=== PATIENT | male | born 1995 | race Caucasian/White ===

== ENCOUNTER → 2017-09-25 | Outpatient (CLI) | payer OTHER ==
[~2017-09-25] MED LIST: CYCL10 PO; Cyclobenzaprine5 MG PO; NAPR550 PO; Norco 5-325 Ta1 EACH PO
[2017-09-25 10:10] LABS: Source, Urine Clean Catch
[2017-09-25 12:42] LABS: Bilirubin, Urine Neg (Neg); Blood, Urine Neg (Neg); Glucose Qualitative, Urine Neg (Neg); Ketones, Urine Neg (Neg); Leukocyte Esterase, Urine Neg (Neg); Nitrite, Urine Neg (Neg); Protein, Urine Neg (Neg); Urobilinogen, Urine NORM (Normal)
[2017-09-25 12:53] LABS: Appearance, Urine Clear (Clear); Color, Urine Yellow (P-Yellow)
== END ==
LOC: LAB 10:08
PROVIDERS: Nurse Practitioner Family
DX: R10.2 Pelvic and perineal pain (principal)
CPT/HCPCS: 81003

== ENCOUNTER → 2017-10-21 | Outpatient (CLI) | payer OTHER ==
[2017-10-21 13:27] LABS: Specimen Source UR
[2017-10-22 08:43] LABS: Source UR
== END ==
LOC: LAB 12:00
PROVIDERS: Nurse Practitioner Family
DX: R10.2 Pelvic and perineal pain (principal)
CPT/HCPCS: 87491; 87591

== ENCOUNTER 2018-03-09 12:18 | Emergency (ER) | payer OTHER ==
[~2018-03-09] VITALS: Ht 182.9 cm; Wt 86.2 kg
== END 2018-03-09 13:34 | disposition home or self-care (01) ==
LOC: ER 12:18
DX: G43.109 Migraine with aura, not intractable, without status migrainosus (principal); Z88.0 Allergy status to penicillin
CPT/HCPCS: 96372; 99283; J1200; J1885; J2765

== ENCOUNTER 2019-12-06 18:25 | Emergency (ER) | payer OTHER ==
[~2019-12-06] VITALS: Ht 185.4 cm; Wt 81.7 kg
[2019-12-06] MEDS ORDERED: KETO10 PO (20:58)
[2019-12-06] MEDS ORDERED: METPRE4DP PO (20:58)
== END 2019-12-06 21:12 | disposition home or self-care (01) ==
LOC: ER 18:25
DX: S33.5XXA Sprain of ligaments of lumbar spine, initial encounter (principal); Z88.0 Allergy status to penicillin; Z88.8 Allergy status to other drugs, medicaments and biological substances; X50.1XXA Overexertion from prolonged static or awkward postures, initial encounter
CPT/HCPCS: 96372; 99283-25; A9270-GY; J1200; J1630; J1885; J7512

== ENCOUNTER 2019-12-18 14:47 | Emergency (ER) | payer OTHER ==
[~2019-12-18] VITALS: Ht 182.9 cm; Wt 81.2 kg
[~2019-12-18 14:47] MED LIST changes: +KETO10 PO; +METPRE4DP PO
[2019-12-18 15:59] LABS: Source, Urine Clean Catch
[2019-12-18 16:02] LABS: Bilirubin, Urine Neg (Neg); Blood, Urine Neg (Neg); Glucose Qualitative, Urine Neg (Neg); Ketones, Urine Neg (Neg); Leukocyte Esterase, Urine Neg (Neg); Nitrite, Urine Neg (Neg); Protein, Urine Neg (Neg); Specific Gravity, Urine 1.005 (1.003-1.022); Urobilinogen, Urine NORM (Normal)
[2019-12-18 16:07] LABS: Appearance, Urine Clear (Clear); Color, Urine Yellow (P-Yellow)
[2019-12-18 16:12] LABS: U Amphetamine Screen Not Detected; U Barbituate Screen Not Detected; U Benzodiazapine Screen Not Detected; U Buprenorphine Screen Not Detected; U Cannabinoids Screen Not Detected; U Cocaine Screen Not Detected; U Methadone Screen Not Detected; U Methamphetamine Screen Not Detected; U Opiates Screen Not Detected; U Oxycodone Screen Not Detected; U Phencyclidine Screen Not Detected; U Propoxyphene Screen Not Detected
[2019-12-18] MEDS ORDERED: Norco 10-325 T1 EACH PO (17:51)
[2019-12-18] MEDS ORDERED: Vibramycin100 MG PO (17:51)
[2019-12-20 21:08] LABS: CHLAMYDIA TRACHOMATIS, NAA Negative (Negative); NEISSERIA GONORRHOEAE, NAA Negative (Negative)
== END 2019-12-18 18:06 | disposition home or self-care (01) ==
LOC: ER 14:47
PROVIDERS: Emergency Medicine
DX: N32.9 Bladder disorder, unspecified (principal); M54.5 Low back pain; Z88.0 Allergy status to penicillin; Z91.09 Other allergy status, other than to drugs and biological substances
CPT/HCPCS: 51798; 81003; 87491; 87591; 99283-25

== ENCOUNTER 2020-01-02 15:01 | Emergency (ER) | payer OTHER ==
[~2020-01-02] VITALS: Ht 182.9 cm; Wt 81.7 kg
[~2020-01-02 15:01] MED LIST changes: +Norco 10-325 T1 EACH PO; +Vibramycin100 MG PO
[2020-01-02] MEDS ORDERED: DELTASONE20 MG PO (15:36)
[2020-01-02] MEDS ORDERED: KETO10 PO (15:36)
== END 2020-01-02 15:57 | disposition home or self-care (01) ==
LOC: ER 15:01
DX: G89.29 Other chronic pain (principal); M54.5 Low back pain; Z88.0 Allergy status to penicillin; Z91.041 Radiographic dye allergy status
CPT/HCPCS: 96372; 99282-25; J1885; J7512

== ENCOUNTER 2020-04-04 19:02 | Emergency (ER) | payer OTHER ==
[~2020-04-04] VITALS: Ht 182.9 cm; Wt 81.7 kg
[~2020-04-04 19:02] MED LIST changes: +DELTASONE20 MG PO; +Prednisone20 MG PO
[2020-04-04] MEDS ORDERED: KETO10 PO (22:40)
[2020-04-04] MEDS ORDERED: CYCL10 PO (22:40)
[2020-04-16] MEDS ORDERED: EPIPEN 2-P0.3 MG/0.1 UD (17:44)
[2020-04-16] MEDS ORDERED: KETO10 PO (17:44)
[2020-04-19] MEDS ORDERED: ONDA4ODT SL (13:18)
[2020-04-19] MEDS ORDERED: HYDPAM25 PO (13:18)
[2020-04-19] MEDS ORDERED: PEPCID40 MG PO (13:18)
[2020-04-28] MEDS ORDERED: Cyclobenzaprine5 MG PO (00:45)
[2020-04-28] MEDS ORDERED: KETO10 PO (00:45)
[2020-04-28] MEDS ORDERED: OMEP20ER PO (01:07)
== END 2020-04-04 22:54 | disposition home or self-care (01) ==
LOC: ER 19:02
DX: G89.29 Other chronic pain (principal); M54.5 Low back pain; Z88.0 Allergy status to penicillin; Z91.09 Other allergy status, other than to drugs and biological substances; Z88.8 Allergy status to other drugs, medicaments and biological substances
CPT/HCPCS: 96372; 99283-25; J1100; J1885

== ENCOUNTER 2020-07-20 07:03 | Day surgery (SDC) | payer OTHER ==
[~2020-07-20 07:03] MED LIST changes: +EPIPEN 2-P0.3 MG/0.1 UD; +HYDPAM25 PO; +OMEP20ER PO; +ONDA4ODT SL; +PEPCID40 MG PO
--- NOTE | 2020-07-20 09:00 | NUR ---
PT DCD WITH INSTRUCTIONS TO CALL DR ROBLEDO'S OFFICE FOR CONSULT 0153 PT GIVEN #1 DOSE LOPRESSURE PT BECAME SYMTOMATIC WITH CHEST PRESSURE AND FEELING OF SOB. RADIOLOGY NOTIFED AND DR ROBLEDO CALLED. DR ROBLEDO WANTED TO CONT LOPRESSURE IF PT TOLERATES 0835 PT GIVEN #3 DOSE LOPRESSURE PT SYMPTOMS STABLE CONT TO HAVE SAME CHEST PRESSURE VSS PT STATES I FEEL FINE MY HEART JUST WONT SLOW DOWN STATES I HAVE A HISTORY OF A HIGH HEART RATE DR AKERS FROM RADIOLOGY CANCELED CTA DUE TO HIGH HRT RATE
== END 2020-07-20 23:33 | disposition home or self-care (01) ==
LOC: ORD 07:03 → CT 07:03 → ORD 07:30 → CT 08:00 → ORD 23:33
DX: R94.39 Abnormal result of other cardiovascular function study (principal); R00.0 Tachycardia, unspecified; F41.9 Anxiety disorder, unspecified; G89.29 Other chronic pain; Z87.891 Personal history of nicotine dependence; Z79.899 Other long term (current) drug therapy; Z88.0 Allergy status to penicillin; Z88.4 Allergy status to anesthetic agent; Z88.8 Allergy status to other drugs, medicaments and biological substances; Z91.041 Radiographic dye allergy status

== ENCOUNTER 2020-08-04 08:04 | Day surgery (SDC) | payer OTHER ==
[~2020-08-04] VITALS: Ht 177.8 cm; Wt 77.0 kg
[2020-08-04] MEDS ORDERED: HYDR1TAB94 PO (08:51)
[2020-08-04 09:02] LABS: BASOPHILS ABSOLUTE AUTO 0.04 K/mm3 (0.00-0.23); BASOPHILS PERCENT AUTO 1 % (0-2); EOSINOPHILS PERCENT AUTO 2 % (0-6); Hematocrit 45.1 % (37.0-53.0); Hemoglobin 15.3 g/dL (13.5-17.5); IMMATURE GRAN ABSOLUTE AUTO 0.01 K/mm3 (0.00-0.10); IMMATURE GRAN PERCENT AUTO 0 % (0-1); LYMPHOCYTES ABSOLUTE AUTO 1.95 K/mm3 (0.84-5.20); LYMPHOCYTES PERCENT AUTO 29 % (21-46); MONOCYTES ABSOLUTE AUTO 0.54 K/mm3 (0.16-1.47); MONOCYTES PERCENT AUTO 8 % (4-13); Mean Corpuscular HGB 29.4 pg (26.0-34.0); Mean Corpuscular HGB Conc 33.9 g/dL (31.5-36.5); Mean Corpuscular Volume 87 fL (80-100); Mean Platelet Volume 10.1 fL (9.1-12.4); NEUTROPHILS ABSOLUTE AUTO 4.16 K/mm3 (1.96-9.15); NEUTROPHILS PERCENT AUTO 61 % (41-73); Platelet Count 241 K/mm3 (150-400); RDW Standard Deviation 38.3 fL (35.1-46.3); Red Blood Cell Count 5.21 M/mm3 (4.30-5.90)
--- NOTE | 2020-08-04 09:02 | NUR ---
PT C/O FEELING LIGHTHEADED DURING IV START, BP DROPPED, PALE AND DIAPHORETIC. PLACED PT INTO TRENDELENBERG POSITION, NS FLUID BOLUS STARTED. WILL CONTINUE TO MONITOR.
[2020-08-04 09:12] LABS: International Normalized Ratio 1.01; Prothrombin Time Results 10.8 Sec (9.7-11.5)
--- NOTE | 2020-08-04 10:17 | NUR ---
PT OUT OF BED, PACES AROUND ROOM AT TIMES, MOTHER AT BEDSIDE. EDUCATED PT ON IMPORTANCE OF STAYING IN BED IF HE FEELS THAT HE IS "GOING TO PASS OUT", VERBALIZED UNDERSTANDING. DR. PRIETO NOW AT BEDSIDE TO DISCUSS PLAN OF CARE WITH PT.
== END 2020-08-04 14:28 | disposition home or self-care (01) ==
LOC: MHTC 08:04
DX: R07.89 Other chest pain (principal); F41.9 Anxiety disorder, unspecified; G89.29 Other chronic pain; M51.16 Intervertebral disc disorders with radiculopathy, lumbar region; Z79.899 Other long term (current) drug therapy; Z87.891 Personal history of nicotine dependence; Z88.0 Allergy status to penicillin; Z88.4 Allergy status to anesthetic agent; Z88.8 Allergy status to other drugs, medicaments and biological substances; Z91.041 Radiographic dye allergy status; Z53.9 Procedure and treatment not carried out, unspecified reason
CPT/HCPCS: 85025; 85610; J1644; J7030; J7050

== ENCOUNTER 2020-08-07 08:36 | Day surgery (SDC) | payer OTHER ==
[~2020-08-07 08:36] MED LIST changes: +HYDR1TAB94 PO
--- NOTE | 2020-08-07 09:25 | NUR ---
PT HERE FOR CTA PT CAME WITH PREMEDS WHICH HE TOOK UPON ARRIVAL IV STARTED 20 G RT AC
--- NOTE | 2020-08-07 10:08 | NUR ---
pt starting to feel tired from predose lorazepam pt tolerating lopressure dose 1 well
== END 2020-08-07 23:15 | disposition home or self-care (01) ==
LOC: CT 08:36
DX: R94.39 Abnormal result of other cardiovascular function study (principal); R07.89 Other chest pain; R00.2 Palpitations; F41.9 Anxiety disorder, unspecified; G89.4 Chronic pain syndrome; Z79.899 Other long term (current) drug therapy; Z87.891 Personal history of nicotine dependence; Z88.0 Allergy status to penicillin; Z88.4 Allergy status to anesthetic agent; Z88.8 Allergy status to other drugs, medicaments and biological substances; Z91.041 Radiographic dye allergy status
CPT/HCPCS: 75574; Q9967

== ENCOUNTER 2020-08-24 22:46 | Emergency (ER) | payer OTHER ==
[~2020-08-24] VITALS: Ht 182.9 cm; Wt 79.4 kg
[2020-08-24] MEDS ORDERED: Robaxin750 MG PO (23:09)
[2020-08-24] MEDS ORDERED: OXYC5 PO (23:10)
== END 2020-08-25 00:29 | disposition home or self-care (01) ==
LOC: ER 22:46
DX: G89.29 Other chronic pain (principal); M54.5 Low back pain; Z87.891 Personal history of nicotine dependence; Z99.12 Encounter for respirator [ventilator] dependence during power failure
CPT/HCPCS: 96374; 96375; 99283-25; J1170; J2405

== ENCOUNTER 2020-09-02 02:22 | Emergency (ER) | payer OTHER ==
[~2020-09-02] VITALS: Ht 182.9 cm; Wt 72.6 kg
[~2020-09-02 02:22] MED LIST changes: +OXYC5 PO; +Robaxin750 MG PO
[2020-09-02 03:24] LABS: BASOPHILS ABSOLUTE AUTO 0.04 K/mm3 (0.00-0.23); BASOPHILS PERCENT AUTO 0 % (0-2); EOSINOPHILS PERCENT AUTO 2 % (0-6); Hematocrit 47.7 % (37.0-53.0); Hemoglobin 16.9 g/dL (13.5-17.5); IMMATURE GRAN ABSOLUTE AUTO 0.06 K/mm3 (0.00-0.10); IMMATURE GRAN PERCENT AUTO 1 % (0-1); LYMPHOCYTES ABSOLUTE AUTO 2.48 K/mm3 (0.84-5.20); LYMPHOCYTES PERCENT AUTO 20 % (21-46); MONOCYTES ABSOLUTE AUTO 0.85 K/mm3 (0.16-1.47); MONOCYTES PERCENT AUTO 7 % (4-13); Mean Corpuscular HGB 29.9 pg (26.0-34.0); Mean Corpuscular HGB Conc 35.4 g/dL (31.5-36.5); Mean Corpuscular Volume 84 fL (80-100); Mean Platelet Volume 9.4 fL (9.1-12.4); NEUTROPHILS ABSOLUTE AUTO 8.82 K/mm3 (1.96-9.15); NEUTROPHILS PERCENT AUTO 71 % (41-73); Platelet Count 340 K/mm3 (150-400); RDW Coefficient Variation 12.1 % (11.7-14.2); RDW Standard Deviation 36.1 fL (35.1-46.3); Red Blood Cell Count 5.66 M/mm3 (4.30-5.90); White Blood Cell Count 12.45 K/mm3 (4.00-11.30)
[2020-09-02 03:42] LABS: Alanine Aminotransfer (ALT/SGP 37 U/L (12-78); Albumin/Globulin Ratio 0.9 (0.8-1.8); Alk Phos 82 U/L (50-136); Anion Gap 5 mmol/L (6-16); Aspartate Aminotrans (AST/SGOT 24 U/L (12-37); Blood Urea Nitrogen 15 mg/dL (8-24); Bun/Creatinine Ratio 17.3 (12.0-20.0); CO2, Blood 29 mmol/L (21-32); Calcium, Blood 9.5 mg/dL (8.5-10.1); Chloride, Blood 105 mmol/L (98-108); Creatinine, Blood 0.87 mg/dL (0.60-1.20); Globulin, Blood 4.5 g/dL (2.2-4.0); Glomerular Filtration Rate >60 (60-); Glucose, Blood 102 mg/dL (70-99); Magnesium, Blood 2.6 mg/dL (1.6-2.4); Potassium, Blood 3.9 mmol/L (3.5-5.5); Sodium, Blood 139 mmol/L (136-145); Total Protein, Blood 8.5 g/dL (6.4-8.2)
[2020-09-02] MEDS ORDERED: Zofran4 MG PO (04:20)
== END 2020-09-02 05:13 | disposition home or self-care (01) ==
LOC: ER 02:22
PROVIDERS: Emergency Medicine
DX: R11.2 Nausea with vomiting, unspecified (principal); Z88.0 Allergy status to penicillin; Z88.4 Allergy status to anesthetic agent; Z91.041 Radiographic dye allergy status; Z87.891 Personal history of nicotine dependence
CPT/HCPCS: 36415; 80053; 83690; 83735; 85025; 96374; 96375; 96376; 99283-25; A9270-GY; J2405; J2550

== ENCOUNTER → 2020-09-07 | Outpatient (CLI) | payer OTHER ==
[~2020-09-07] MED LIST changes: +Zofran4 MG PO
[2020-09-07 15:51] LABS: U Amphetamine Screen Not Detected; U Barbituate Screen Not Detected; U Benzodiazapine Screen Not Detected; U Buprenorphine Screen Not Detected; U Cannabinoids Screen Not Detected; U Cocaine Screen Not Detected; U Methadone Screen Not Detected; U Methamphetamine Screen Not Detected; U Opiates Screen Not Detected; U Oxycodone Screen DETECTED; U Phencyclidine Screen Not Detected; U Propoxyphene Screen Not Detected
== END | disposition home or self-care (01) ==
LOC: LAB EV 13:14 → LAB SHORT 13:14
PROVIDERS: Nurse Practitioner Family
DX: Z51.81 Encounter for therapeutic drug level monitoring (principal); Z79.891 Long term (current) use of opiate analgesic

== ENCOUNTER 2020-11-23 06:45 | Day surgery (SDC) | payer OTHER ==
[~2020-11-23] VITALS: Ht 182.9 cm; Wt 74.6 kg
[~2020-11-23 06:45] MED LIST changes: +Ativan1 MG; +METO25ER PO
== END 2020-11-23 08:52 | disposition home or self-care (01) ==
LOC: ORSCSDS 06:45
PROVIDERS: Student in an Organized Health Care Education/Training Program
PROC: 0DB98ZX Excision of Duodenum, Via Natural or Artificial Opening Endoscopic, Diagnostic (ICD-10-PCS; principal; 2020-11-23 08:00)
PROC: 0DB68ZX Excision of Stomach, Via Natural or Artificial Opening Endoscopic, Diagnostic (ICD-10-PCS; principal; 2020-11-23 08:00)
PROC: 0DB58ZX Excision of Esophagus, Via Natural or Artificial Opening Endoscopic, Diagnostic (ICD-10-PCS; principal; 2020-11-23 08:00)
DX: K21.9 Gastro-esophageal reflux disease without esophagitis (principal); R13.10 Dysphagia, unspecified; F41.9 Anxiety disorder, unspecified; Z79.899 Other long term (current) drug therapy
CPT/HCPCS: 88305; 88342; J0461; J2250; J2405; J2704; J7120

== ENCOUNTER → 2022-04-29 | Outpatient (CLI) | payer OTHER | END | disposition home or self-care (01) | LOC: LAB 17:55 → LAB SHORT 17:55 | DX: J32.9 Chronic sinusitis, unspecified (principal) | CPT/HCPCS: 87070; 87205 ==

== ENCOUNTER 2022-06-14 21:11 | Emergency (ER) | payer OTHER ==
[~2022-06-14] VITALS: Ht 182.9 cm; Wt 81.7 kg
[2022-06-14] MEDS ORDERED: FeroSul 325 mg (65 m (22:17)
[2022-06-14 22:22] LABS: Influenza A, PCR NEGATIVE (NEGATIVE); Influenza B, PCR NEGATIVE (NEGATIVE); Resp Syncytial Virus, PCR NEGATIVE (NEGATIVE)
[2022-06-14 22:56] LABS: SARS-Cov-2 (COVID-19) PCR, MMC POSITIVE (NEGATIVE)
== END 2022-06-14 23:17 | disposition home or self-care (01) ==
LOC: ER 21:11
PROVIDERS: Physician Assistant
DX: U07.1 COVID-19 (principal); Z88.0 Allergy status to penicillin; Z88.8 Allergy status to other drugs, medicaments and biological substances; Z91.040 Latex allergy status; Z87.891 Personal history of nicotine dependence
CPT/HCPCS: 0241U

== ENCOUNTER → 2022-07-09 | Outpatient (CLI) | payer OTHER ==
[~2022-07-09] MED LIST changes: +FeroSul 325 mg (65 m
[2022-07-09 15:21] LABS: BASOPHILS ABSOLUTE AUTO 0.04 K/mm3 (0.00-0.23); BASOPHILS PERCENT AUTO 1 % (0-2); EOSINOPHILS PERCENT AUTO 2 % (0-6); Hematocrit 47.8 % (37.0-53.0); Hemoglobin 16.4 g/dL (13.5-17.5); IMMATURE GRAN ABSOLUTE AUTO 0.02 K/mm3 (0.00-0.10); IMMATURE GRAN PERCENT AUTO 0 % (0-1); LYMPHOCYTES ABSOLUTE AUTO 1.18 K/mm3 (0.84-5.20); LYMPHOCYTES PERCENT AUTO 24 % (21-46); MONOCYTES ABSOLUTE AUTO 0.58 K/mm3 (0.16-1.47); MONOCYTES PERCENT AUTO 12 % (4-13); Mean Corpuscular HGB 29.5 pg (26.0-34.0); Mean Corpuscular HGB Conc 34.3 g/dL (31.5-36.5); Mean Corpuscular Volume 86 fL (80-100); Mean Platelet Volume 11.7 fL (9.1-12.4); NEUTROPHILS PERCENT AUTO 61 % (41-73); Platelet Count 224 K/mm3 (150-400); RDW Coefficient Variation 12.8 % (11.7-14.2); RDW Standard Deviation 39.8 fL (35.1-46.3); Red Blood Cell Count 5.56 M/mm3 (4.30-5.90); White Blood Cell Count 4.92 K/mm3 (4.00-11.30)
[2022-07-09 16:06] LABS: Albumin, Blood 4.1 g/dL (3.4-5.0); Albumin/Globulin Ratio 1.2 (0.8-1.8); Bilirubin, Total 0.9 mg/dL (0.1-1.0); Calcium, Blood 9.4 mg/dL (8.5-10.1); Creatinine, Blood 0.86 mg/dL (0.60-1.20); Globulin, Blood 3.5 g/dL (2.2-4.0); Potassium, Blood 4.4 mmol/L (3.5-5.5); Total Protein, Blood 7.6 g/dL (6.4-8.2)
[2022-07-09 16:21] LABS: Percent Saturation 22.9 % (20.0-50.0)
== END | disposition home or self-care (01) ==
LOC: LAB SHORT 10:21 → LAB 10:21
PROVIDERS: Nurse Practitioner Family
DX: R53.83 Other fatigue (principal); R77.8 Other specified abnormalities of plasma proteins
CPT/HCPCS: 80053; 82728; 83540; 83550; 83735; 85025

== ENCOUNTER → 2022-12-30 | Outpatient (CLI) | payer OTHER | END | disposition home or self-care (01) | LOC: LAB SHORT 12:00 → LAB 12:00 | DX: J06.9 Acute upper respiratory infection, unspecified (principal) | CPT/HCPCS: 87081 ==

== ENCOUNTER → 2023-08-29 | Outpatient (CLI) | payer OTHER ==
[2023-08-29 14:00] LABS: Percent Saturation 41.3 % (20.0-50.0)
== END ==
LOC: LAB SHORT 11:58 → LAB 11:58
PROVIDERS: Nurse Practitioner Family
DX: R77.8 Other specified abnormalities of plasma proteins (principal)
CPT/HCPCS: 36415; 82728; 83540; 83550